=== PATIENT | female | born 1940 | race Caucasian/White ===

== ENCOUNTER → 2016-10-30 | Outpatient (CLI) | payer MEDICARE, BC ==
[~2016-10-30] MED LIST: ASPIRIN CHEWABL81 MG PO; LIPITOR TAB 2020 MG PO; METOPROLOL TART25 MG PO; NORVASC 5 MG TAB5 MG PO; VALSARTAN320 MG PO
== END ==
LOC: LAB 15:00
DX: R07.89 Other chest pain (principal)
CPT/HCPCS: 36415; 85379

== ENCOUNTER → 2016-11-02 | Outpatient (CLI) | payer MEDICARE, BC | LOC: CT 11-01 13:00 → LAB 10:13 → KOH-I 10:13 | DX: I10 Essential (primary) hypertension (principal); I42.1 Obstructive hypertrophic cardiomyopathy; R00.1 Bradycardia, unspecified; I73.9 Peripheral vascular disease, unspecified; R07.9 Chest pain, unspecified; R79.89 Other specified abnormal findings of blood chemistry | CPT/HCPCS: 36415; 82565; 84520; J7050; Q9963 ==

== ENCOUNTER → 2016-12-10 | Day surgery (SDC) | payer MEDICARE, BC | END | disposition home or self-care (01) | LOC: OR | PROVIDERS: Surgery | PROC: 0DB48ZX Excision of Esophagogastric Junction, Via Natural or Artificial Opening Endoscopic, Diagnostic (ICD-10-PCS; 2016-12-10) | PROC: 0DB68ZX Excision of Stomach, Via Natural or Artificial Opening Endoscopic, Diagnostic (ICD-10-PCS; principal; 2016-12-10 07:30) | DX: K29.50 Unspecified chronic gastritis without bleeding (principal); K20.9 Esophagitis, unspecified; M94.0 Chondrocostal junction syndrome [Tietze]; E78.5 Hyperlipidemia, unspecified; I10 Essential (primary) hypertension; I42.1 Obstructive hypertrophic cardiomyopathy; K21.9 Gastro-esophageal reflux disease without esophagitis; I73.9 Peripheral vascular disease, unspecified; Z88.8 Allergy status to other drugs, medicaments and biological substances; Z79.899 Other long term (current) drug therapy; Z95.5 Presence of coronary angioplasty implant and graft; Z90.710 Acquired absence of both cervix and uterus; Z98.49 Cataract extraction status, unspecified eye; Z87.11 Personal history of peptic ulcer disease | CPT/HCPCS: J7120 ==

== ENCOUNTER → 2016-12-17 | Outpatient (CLI) | payer MEDICARE, BC | LOC: KOH-I 14:30 | DX: I73.9 Peripheral vascular disease, unspecified (principal) | CPT/HCPCS: 93922; 93926 ==

== ENCOUNTER → 2021-08-29 | Outpatient (CLI) | payer MEDICARE, BC ==
[~2021-08-29] MED LIST changes: +CANDESARTAN CIL16 MG PO; +CIPRO500 MG PO; +CRESTOR5 MG PO; +LEVOTHYROXINE50 MCG PO; +MYRBETRIQ50 MG PO
[2021-08-29 10:12] LABS: HEMOGLOBIN 14.2 gm/dl (12.3-15.3); RED BLOOD COUNT 4.9 M/UL (4.00-5.10); WHITE BLOOD COUNT 8.6 K/UL (4.5-11.0)
[2021-08-29 10:32] LABS: BUN/CREATININE RATIO 22 (0-10)
== END ==
LOC: OPSV2 08-25 12:00
PROVIDERS: Obstetrics & Gynecology
DX: Z01.818 Encounter for other preprocedural examination (principal); N39.41 Urge incontinence; R94.31 Abnormal electrocardiogram [ECG] [EKG]
CPT/HCPCS: 36415; 71046; 80053; 85025; 93005

== ENCOUNTER → 2021-08-30 | Day surgery (SDC) | payer MEDICARE, BC | END | disposition home or self-care (01) | LOC: OR 10:28 | DX: N39.41 Urge incontinence (principal); N30.30 Trigonitis without hematuria; I10 Essential (primary) hypertension; E03.9 Hypothyroidism, unspecified; E78.5 Hyperlipidemia, unspecified; Z79.899 Other long term (current) drug therapy; Z20.822 Contact with and (suspected) exposure to COVID-19 | CPT/HCPCS: 81001; C1769; J0585; J0690; J1100; J2001; J2405; J2704; J2795; J3010; J7120 ==